=== PATIENT | male | born 1940 | race Caucasian/White ===

== ENCOUNTER 2020-06-03 15:51 | Emergency (ER) | payer MEDICARE, OTHER ==
[~2020-06-03] VITALS: Ht 177.8 cm; Wt 82.7 kg
[2020-06-03] MEDS ORDERED: LIDOcaine 1% W/epiNEPHrine 1:200,000 10ml vial IJ ONE (16:25)
[2020-06-03] MEDS ORDERED: SULF1TAB49 PO (18:25)
[2020-06-03] MEDS ORDERED: sulfamethoxazole/trimethoprim DS (800/160mg) tablet PO ONE (18:35)
[2020-06-03 18:41] VITALS: BP 152/87
== END 2020-06-03 18:44 | disposition home or self-care (01) ==
LOC: ER 15:52
DX: T81.31XA Disruption of external operation (surgical) wound, not elsewhere classified, initial encounter (principal); I10 Essential (primary) hypertension; Z98.890 Other specified postprocedural states; Z79.899 Other long term (current) drug therapy; Y83.8 Other surgical procedures as the cause of abnormal reaction of the patient, or of later complication, without mention of misadventure at the time of the procedure; Y92.89 Other specified places as the place of occurrence of the external cause
CPT/HCPCS: 76870; 93976; 99284

== ENCOUNTER 2021-12-13 12:01 | Day surgery (SDC) | payer MEDICARE, OTHER ==
[~2021-12-13] VITALS: Ht 177.8 cm; Wt 81.5 kg
[2021-12-13] VITALS (8 sets, daily range): BP systolic 157–196; BP diastolic 94–110
[~2021-12-13 12:01] MED LIST: CARV25TA2 PO; DOCUMENT DATE & TIME OF BETA-BLOCKER PO ONE; FLUO10CA28 PO; IBUP-24 PO; ceFAZolin inj. 2,000 MG in dextrose 5%-water 100 ML IV ONE; famotidine 20mg tablet PO ONE; ringers solution, lacted 1,000 ML IV SCH
[2021-12-13] MEDS ORDERED: mineral oil 10ml sterile, topical TP ONE (12:24)
[2021-12-13] MEDS ORDERED: LIDOCAINE 1%/EPI 1:100,000 inj. 10 ML multi-dose vial ONE ×2 (12:25→12:42)
[2021-12-13] MEDS ORDERED: BUPIVAcaine/PF 2.5 mg/ml (0.25%) 30ml vial ONE (12:25)
[2021-12-13] MEDS ORDERED: epiNEPHrine 1 mg/ml inj ONE (12:30)
[2021-12-13 13:11] LABS: BASOPHILS # (AUTO) 0.1 X10'3 (0-0.2); EOSINOPHILS # (AUTO) 0.4 X10'3 (0-0.9); EOSINOPHILS % (AUTO) 7.1 % (0-6); LYMPHOCYTES # (AUTO) 1.5 X10'3 (1.1-4.8); MEAN CORPUSCULAR HEMOGLOBIN 30.2 PG (27.0-31.0); MEAN CORPUSCULAR HGB CONC 33.4 g/dL (33.0-36.5); MEAN CORPUSCULAR VOLUME 90.5 FL (78-98); MEAN PLATELET VOLUME 7.3 FL (7.4-10.4); MONOCYTES # (AUTO) 0.5 X10'3 (0-0.9); MONOCYTES % (AUTO) 8.4 % (2-12); NEUTROPHILS # (AUTO) 3.1 X10'3 (1.8-7.7); NEUTROPHILS % (AUTO) 56.5 % (42-75); PRE OP HEMATOCRIT 39.7 % (42.0-52.0); PRE OP HEMOGLOBIN 13.2 g/dL (14.0-17.9); PRE OP PLATELET COUNT 286 X10'3 (140-440); RED BLOOD COUNT 4.38 X10'6 (4.70-6.10); RED CELL DISTRIBUTION WIDTH 13.2 % (11.5-14.5)
[2021-12-13 13:29] LABS: ALBUMIN 3.8 G/DL (3.4-5.0); ALBUMIN/GLOBULIN RATIO 1.1 (1.1-1.5); ALKALINE PHOSPHATASE 68 IU/L (46-116); BLOOD UREA NITROGEN 15 MG/DL (7-18); BUN/CREATININE RATIO 17.6 (5.4-32.0); CALCIUM 8.7 MG/DL (8.5-10.1); CHLORIDE 108 MMOL/L (99-107); CREATININE 0.85 MG/DL (0.60-1.10); PRE OP ALT 26 U/L (30-65); PRE OP ANION GAP 8 (8-16); PRE OP AST 18 U/L (10-37); PRE OP BILIRUB, TOTAL 0.4 MG/DL (0.0-1.0); PRE OP GLUCOSE 96 MG/DL (70-104); PRE OP POTASSIUM 4.1 MMOL/L (3.4-5.1); PRE OP SODIUM 144 MMOL/L (135-145); TOTAL CARBON DIOXIDE 27.8 MMOL/L (24-32); TOTAL PROTEIN 7.2 G/DL (6.4-8.2); eGFR 86 ML/MIN
[2021-12-13] MEDS ORDERED: morphine 4 MG/ML inj SYRINge IV PRN (15:25)
[2021-12-13] MEDS ORDERED: meperidine/PF 25mg/ml syringe IV PRN ×3 (15:25)
[2021-12-13] MEDS ORDERED: proCHLORperazine 10 MG/2 ml inj IV PRN (15:25)
[2021-12-13] MEDS ORDERED: ringers solution, lacted 1,000 ML IV SCH (15:25)
[2021-12-13] MEDS ORDERED: ondansetron/PF 4mg/2ml inj IV PRN (15:25)
[2021-12-13] MEDS ORDERED: morphine 2 MG/ML inj. syringe IV PRN (15:25)
[2021-12-13] MEDS ORDERED: fentaNYL/PF 50MCG/1 ML 2ML syringe ONE (15:26)
[2021-12-13] MEDS ORDERED: midazolam 1 mg/ML 2ml injection ONE (15:26)
[2021-12-13] MEDS ORDERED: propofol inj 20 ML IV ONE (15:28)
[2021-12-13] MEDS ORDERED: dexamethasone sod phosphate 4mg/ml inj. ONE (15:49)
[2021-12-13] MEDS ORDERED: ePHEDrine 50MG/ML INJ. ONE (15:50)
[2021-12-13] MEDS ORDERED: mupirocin 2% ointment 22GM ONE (16:09)
[2021-12-13] MEDS ORDERED: ondansetron/PF 4mg/2ml inj ONE (16:18)
--- NOTE | 2021-12-13 16:29 | NUR ---
Received from OR via BED, accompanied by Anesthesiologist NIKO and OR NURSE report given by Anesthesiolgist. PT DROWSY YET ABLE TO FOLLOW VERBAL COMMANDS. ON ROOM AIR. DENIES PAIN OR DISCOMFORT. BPIS ELEVATED, OTHER VITALS STABLE. NIKO STATES DOES NOT WANT TO TREAT HTN HEART RATE WAS SOFT. LEFT ARM IN SLING WITH KERLIX DRESSING WRAPPED AROUND INCISION AREA. FAMILY AT BEDSIDE. Addendum: 12/13/21 at 1651 by Romy Read RN Amended: Links added.
--- NOTE | 2021-12-13 17:49 | NUR ---
ALL DISCHARGE CRITERIA HAS BEEN MET. VSS, SYSTOLIC STILL HIGH HOWEVER REDUCING; MD AWARE. PAIN AT A TOLERABLE LEVEL, VOIDING AND ABLE TO SAFELY AMBULATE AND TRANSFER SELF. IV TAKEN OUT WITHOUT ANY COMPLICATIONS; PRIMARY CLASS TEACHER AND FAMILY NOTICED A RED LINE STEMMING FROM IV SITE GOING UP ARM. PRIMARY CLASS TEACHER MARKED END OF LINE AND SPOUSE STATES THAT THIS OCCURRED ANOTHER TIME WHEN PT RECEIVED IV ANTIBIOTIC. RECOMMENDATION TO WATCH AREA CLOSELY AND CONTACT MD'S OFFICE IF WORSENS; FAMILY EXPRESSED UNDERSTANDING. ALL DISCHARGE INSTRUCTIONS COVERED WITH PATIENT AND ALL QUESTIONS ANSWERED. PATIENT TAKEN OUT VIA WHEELCHAIR AND NURSE ASSISTED INTO CAR AND SECURED SEATBELT TO PERSONAL VEHICLE WHERE FAMILY/FRIEND DROVE PATIENT HOME. Addendum: 12/13/21 at 1801 by Romy Read RN Amended: Links added.
== END 2021-12-13 17:49 | disposition home or self-care (01) ==
LOC: PAS 12:01
PROVIDERS: ATTEND Surgery
DX: C44.619 Basal cell carcinoma of skin of left upper limb, including shoulder (principal); I10 Essential (primary) hypertension; F41.8 Other specified anxiety disorders; Z79.899 Other long term (current) drug therapy; Z98.890 Other specified postprocedural states; M19.90 Unspecified osteoarthritis, unspecified site; Z80.42 Family history of malignant neoplasm of prostate; Z80.8 Family history of malignant neoplasm of other organs or systems
CPT/HCPCS: 11606; 12034; 36415; 80053; 82948; 85025; 93005; A6222; J0690; J1100; J2175; J2250; J2270; J2405; J2704; J3010; J3490; J7030; J7060; J7120; Z7506; Z7508; Z7512; A4565; A4618; A6253; A6446; A6449; A7000; J0171